=== PATIENT | female | born 1980 | race Caucasian/White ===

== ENCOUNTER 2017-01-12 10:23 | Observation (INO) | payer MEDICAID ==
[2017-01-12 10:31] VITALS: BMI 22.1
--- NOTE | 2017-01-12 10:46 | ED PDOC ---
Arrival/HPI - General Time Seen by Provider: 01/12/17 10:31 Historian: Patient - History of Present Illness Narrative History of Present Illness (Text): 01/12/17 10:32 A 36 year old female, whose past medical history includes diabetes, presents to the emergency department complaining of syncope episode. Patient reports waking up in bed and having no recollection of what may have happened prior to syncope episode. Patient mentions she most likely fell and hit her head due to right-side "sore" pain in the back of her head. Also, she states that recently she has not been able to eat due the recent left-side toothache and she is scheduled to see her dentist tomorrow. Patient denies of any fever, chest pain , shortness of breath, urinary symptoms, or any other complaints. Patient mentions she takes OCP medication. PMD: [facility] Symptom Onset: Sudden Quality: Other (sore head pain) Activities at Onset: Rest, Light Context: Home Past Medical History - Provider Review Nursing Documentation Reviewed: Yes - Travel History Have you recently traveled outside [place] w/in the past 3 mons?: No Family/Social History - Physician Review Nursing Documentation Reviewed: Yes Family/Social History: No Known Family HX Allergies/Home Meds Allergies/Adverse Reactions: Allergies No Known Allergies Allergy (Unverified 01/12/17 10:37) Home Medications: Home Meds Medication Instructions Recorded Confirmed Insulin Aspart, Recombinant 8 unit SC BID 01/12/17 01/12/17 [Novolog] Review of Systems - Physician Review All systems were reviewed & negative as marked: Yes - Review of Systems Constitutional: absent: Fevers Respiratory: absent: SOB Cardiovascular: Syncope. absent: Chest Pain Gastrointestinal: absent: Abdominal Pain, Diarrhea, Nausea, Vomiting Genitourinary Female: absent: Urine Output Changes Musculoskeletal: Other (right-side head pain (back of head)) Physical Exam Vital Signs Reviewed: Yes Vital Signs Temp Pulse Resp BP Pulse Ox 01/12/17 15:34 122 H 18 122/87 100 01/12/17 14:55 98.7 F 124 H 18 123/67 100 01/12/17 12:51 122 H 18 135/95 H 100 01/12/17 10:38 98.3 F 97 H 18 130/87 100 Temperature: Afebrile Blood Pressure: Normal Pulse: Regular Respiratory Rate: Normal Appearance: Positive for: Well-Appearing Pain Distress: None Mental Status: Positive for: Alert and Oriented X 3 - Systems Exam Head: Present: Tenderness (right-side posterior). No: Other (no hematoma) Pupils: Present: PERRL Extroacular Muscles: Present: EOMI Conjunctiva: Present: Normal Mouth: Present: Moist Mucous Membranes Neck: Present: Normal Range of Motion Respiratory/Chest: No: Tender to Palpation Cardiovascular: Present: Regular Rate and Rhythm, Normal S1, S2. No: Murmurs Abdomen: Present: Normal Bowel Sounds. No: Tenderness, Distention, Peritoneal Signs Back: Present: Normal Inspection Upper Extremity: Present: Normal Inspection. No: Cyanosis, Edema Lower Extremity: Present: Normal Inspection. No: Edema Neurological: Present: GCS=15, CN II-XII Intact, Speech Normal Skin: Present: Warm, Dry, Normal Color. No: Rashes Psychiatric: Present: Alert, Oriented x 3, Normal Insight, Normal Concentration Medical Decision Making ED Course and Treatment: 01/12/17 10:56 Impression: 36 year old male with syncope and sore head pain. Physical exam shows right-side posterior tenderness, no hematoma. Differential Diagnosis included but are not limited to: Syncope secondary to Cardiac vs. Dehydration vs PE Plan: -- EKG -- Head CT -- Chest CT -- Chest X-Ray -- Labs -- Urinalysis -- Reassess and disposition Progress Notes: 01/12/2017 10:57 EKG: Ordered, reviewed, and independently interpreted the EKG. Rate : 97 BPM Rhythm : NSR Interpretation : No ST-segment elevations or depressions, no T-wave inversions, normal intervals. Comparison : No previous EKG for comparison. 01/12/2017 12:[address] IMPRESSION: No acute finding Dictator: Yves Conti MD 01/12/17 12:[address] IMPRESSION: Unremarkable CT pulmonary angiogram. No pulmonary embolus. Dictator: Yves Conti MD 01/12/2017 13:35 Chest X-Ray IMPRESSION: Patchy infiltrate at the left lung base Dictator : Yves Conti MD 01/12/17 15:03 EKG: Ordered, reviewed, and independently interpreted the EKG. Rate : 122 BPM Rhythm : Sinus Tachycardic Interpretation : No ST-segment elevations or depressions, no T-wave inversions, normal intervals. Comparison : No previous EKG for comparison. 01/12/17 15:[address] completed and negative. Also CT does not show infiltrate as does CXR. Dr. Goins confirmed no infiltrate on CT Chest. Despite NS 2 liter boluses and Ativan 1mg IV patient's heart rate is at 120's. EKG repeated and it' s Sinus tachycardia. She will be placed on tele observation. I discussed case with Dr. Tate who will agree to place the patient on her service. - Critical Care Critical Care Minutes: 30 minutes - Lab Interpretations Lab Results: 01/12/17 10:55 01/12/17 10:55 Lab Results 01/12/17 12:10: Urine Color Yellow, Urine Appearance Sl cloudy, Urine pH 6.0, Ur Specific [place] >= 1.030, Urine Protein 30 H, Urine Glucose (UA) >=1000, Urine Ketones 15 H, Urine Blood Trace-lysed H, Urine Nitrate Negative, Urine Bilirubin Negative, Urine Urobilinogen 0.2, Ur Leukocyte Esterase Negative, Urine RBC 2 - 5, Urine WBC 0 - 2, Ur Epithelial Cells 3 - 4, Urine Bacteria Mod 01/12/17 10:55: Sodium 138, Potassium 3.7, Chloride 103, Carbon Dioxide 24, Anion Gap 15, BUN 9, Creatinine 0.6, Est GFR ( Amer) > 60, Est GFR (Non- Af Amer) > 60, Random Glucose 149 H, Calcium 9.1, Magnesium 1.7, Total Bilirubin 0.5, AST 13 L, ALT 21, Alkaline Phosphatase 83, Lactate Dehydrogenase 286 L, Total Creatine Kinase 23 L, Troponin I < 0.01, Total Protein 7.6, Albumin 4.2, Globulin 3.4, Albumin/Globulin Ratio 1.2 01/12/17 10:55: PT 10.6, INR 0.98, APTT 24.4, D-Dimer, Quantitative 0.84 H 01/12/17 10:55: WBC 8.1, RBC 5.08, Hgb 13.5, Hct 40.3, MCV 79.3 L, MCH 26.6, MCHC 33.5, RDW 12.3, Plt Count 278, MPV 10.4, Gran % 70.6 H, Lymph % (Auto) 21.0 L, [place] % (Auto) 7.2 H, Eos % (Auto) 1.0 L, Baso % (Auto) 0.2, Gran # 5.74 , Lymph # 1.7, [place] # 0.6, Eos # 0.1, Baso # 0.02 I have reviewed the lab results: Yes Interpretation: Abnormal lab values (dimer elevated) - RAD Interpretation Radiology Orders: 01/12/17 10:38 Brain [HEAD W/O CONTRAST] [CT] Stat CHEST ONE VIEW [RAD] Stat 01/12/17 11:26 ANGIO CHEST PE PROTOCOL [CT] Stat 01/12/17 15:42 CAROTID & VERTEBRAL DUPLEX [US] Routine - Medication Orders Current Medication Orders: Sodium Chloride (Sodium Chloride 0.9%) 1,000 mls @ 100 mls/hr IV .Q10H DAHIANA Insulin Human Regular (Humulin R Low) 0 units SC ACHS DAHIANA PRN Reason: Protocol Discontinued Medications Acetaminophen (Tylenol 325mg Tab) 650 mg PO STAT STA Stop: 01/12/17 10:53 Last Admin: 01/12/17 11:11 Dose: 650 mg Sodium Chloride (Sodium Chloride 0.9%) 1,000 mls @ 100 mls/hr IV .Q10H DAHIANA Last Admin: 01/12/17 11:07 Dose: 100 mls/hr Sodium Chloride (Sodium Chloride 0.9%) 1,000 mls @ 999 mls/hr IV .Q1H1M STA Stop: 01/12/17 14:56 Last Admin: 01/12/17 14:00 Dose: 999 mls/hr Iodixanol (Visipaque 320 Mg/Ml 100 Ml) Confirm Administered Dose 100 ml IV .STK- MED ONE Stop: 01/12/17 11:55 Lorazepam (Ativan) 1 mg IVP ONCE ONE PRN Reason: Protocol Stop: 01/12/17 14:49 Last Admin: 01/12/17 15:04 Dose: 1 mg - Scribe Statement The provider has reviewed the documentation as recorded by the David David Provider Scribe Attestation: All medical record entries made by the Scribtoby were at my direction and personally dictated by me. I have reviewed the chart and agree that the record accurately reflects my personal performance of the history, physical exam, medical decision making, and the department course for this patient. I have also personally directed, reviewed, and agree with the discharge instructions and disposition. Disposition/Present on Arrival - Present on Arrival Any Indicators Present on Arrival: No - Disposition Have Diagnosis and Disposition been Completed?: Yes Diagnosis: Syncope, Tachycardia Disposition Time: 15:50 Patient Plan: Observation Condition: FAIR Discharge Instructions (ExitCare): Syncope (ED)
[2017-01-12] MEDS ORDERED: Sodium Chloride 0.9% 1,000 ML IV SCH ×2 (11:00→15:30)
[2017-01-12 11:04] LABS: BASO # 0.02 K/mm3 (0.0-2.0); BASO % 0.2 % (0.0-3.0); EOS # 0.1 (0.0-0.7); GRAN # 5.74 (1.4-6.5); GRAN % 70.6 % (50.0-68.0); HEMOGLOBIN 13.5 g/dL (12.0-16.0); LYMPH # 1.7 (1.2-3.4); MEAN CELL VOLUME 79.3 fl (80.0-105.0); MEAN CORPUSCULAR HEMOGLOBIN 26.6 pg (25.0-35.0); MEAN CORPUSCULAR HGB CONC 33.5 g/dl (31.0-37.0); MEAN PLATELET VOLUME 10.4 fl (7.0-11.0); MONO # 0.6 (0.1-0.6); MONO % 7.2 % (1.0-6.0); PLATELET COUNT 278 10^3/uL (120.0-450.0); RBC 5.08 10^6/uL (3.5-6.1); RED CELL DISTRIBUTION WIDTH 12.3 % (11.5-14.5); WHITE BLOOD COUNT 8.1 10^3/ul (4.5-11.0)
[2017-01-12 11:12] LABS: ALB/GLOB RATIO 1.2 (1.1-1.8); ALBUMIN 4.2 g/dL (3.0-4.8); ALT/SGPT 21 U/L (7-56); AST/SGOT 13 U/L (15-39); BLOOD UREA NITROGEN 9 mg/dL (7-21); CALCIUM 9.1 mg/dL (8.4-10.5); GFR AFRICAN-AMERICAN > 60; GFR NON-AFRICAN AMERICAN > 60; MAGNESIUM 1.7 mg/dL (1.7-2.2)
[2017-01-12 11:24] LABS: INR 0.98 (0.93-1.08); PARTIAL THROMBOPLASTIN TIME 24.4 Seconds (23.7-30.8); PROTHROMBIN TIME 10.6 Seconds (9.9-11.8)
[2017-01-12 11:25] LABS: D DIMER 0.84 mg/L FEU (0-0.50)
[2017-01-12 11:30] LABS: TROPONIN I < 0.01 ng/mL
[2017-01-12] MEDS ORDERED: Iodixanol 320 MG/ML 100 ML BOTTLE IV ONE (11:54)
[2017-01-12 12:19] LABS: URINE BILIRUBIN NEGATIVE (NEGATIVE); URINE BLOOD TRACE-LYSED (NEGATIVE); URINE COLOR YELLOW (YELLOW); URINE GLUCOSE (UA) >=1000 mg/dL (NEGATIVE); URINE LEUKOCYTE ESTERASE NEGATIVE Leu/uL (NEGATIVE); URINE NITRATE NEGATIVE (NEGATIVE); URINE PROTEIN 30 mg/dL (<30 mg/dL); URINE UROBILINOGEN 0.2 E.U./dL (<1 E.U./dL)
[2017-01-12 12:20] LABS: URINE APPEARANCE SL CLOUDY (CLEAR)
[2017-01-12 12:36] LABS: URINE BACTERIA MOD (NEG); URINE WBC 0 - 2 /hpf (0-6)
--- NOTE | 2017-01-12 12:43 | CT ---
PROCEDURE: CT HEAD WITHOUT CONTRAST. HISTORY: head injury r/o ich COMPARISON: None available. TECHNIQUE: Axial computed tomography images were obtained through the head/brain without intravenous contrast. Radiation dose: Total exam DLP = 689 mGy-cm. This CT exam was performed using one or more of the following dose reduction techniques: Automated exposure control, adjustment of the mA and/or kV according to patient size, and/or use of iterative reconstruction technique. FINDINGS: HEMORRHAGE: No intracranial hemorrhage. BRAIN: No mass effect or edema. No atrophy or chronic microvascular ischemic changes. VENTRICLES: Unremarkable. No hydrocephalus. CALVARIUM: Unremarkable. PARANASAL SINUSES: Unremarkable as visualized. No significant inflammatory changes. MASTOID AIR CELLS: Unremarkable as visualized. No inflammatory changes. OTHER FINDINGS: None. IMPRESSION: No acute finding
--- NOTE | 2017-01-12 12:46 | CT ---
PROCEDURE: CT Chest with contrast (Pulmonary Angiogram) HISTORY: elevated dimer and syncope r/o PE COMPARISON: None available. TECHNIQUE: Axial computed tomography images were obtained of the chest in the pulmonary arterial phase of enhancement. Coronal and sagittal reformatted images were created and reviewed. Intravenous contrast dose: 100 cc of Visipaque Radiation dose: Total exam DLP = 327 mGy-cm. This CT exam was performed using one or more of the following dose reduction techniques: Automated exposure control, adjustment of the mA and/or kV according to patient size, and/or use of iterative reconstruction technique. FINDINGS: PULMONARY ARTERIES: Unremarkable. No pulmonary embolism. AORTA: No acute findings. No thoracic aortic aneurysm. LUNGS: Unremarkable. No nodule, mass or pulmonary consolidation. PLEURAL SPACES: Unremarkable. No effusion or pneuomothorax. HEART: Unremarkable. No cardiomegaly. No significant pericardial effusion. LYMPH NODES: No lymphadenopathy. BONES, CHEST WALL: Unremarkable. No fracture or destructive lesion OTHER FINDINGS: Unremarkable. IMPRESSION: Unremarkable CT pulmonary angiogram. No pulmonary embolus.
--- NOTE | 2017-01-12 13:37 | RAD ---
PROCEDURE: CHEST RADIOGRAPH, 1 VIEW HISTORY: syncope COMPARISON: None available. FINDINGS: LUNGS: Patchy infiltrate at the left lung base PLEURA: No pneumothorax or pleural fluid seen. CARDIOVASCULAR: Normal. OSSEOUS STRUCTURES: No significant abnormalities. VISUALIZED UPPER ABDOMEN: Normal. OTHER FINDINGS: None. IMPRESSION: Patchy infiltrate at the left lung base
[2017-01-12] MEDS ORDERED: Sodium Chloride 0.9% 1,000 ML IV STA (13:56)
[2017-01-12 16:19] LABS: MAGNESIUM 1.7 mg/dL (1.7-2.2)
[2017-01-12] MEDS ORDERED: Insulin Regular 1 UNITS/0.01 ML ML ONE (16:32)
[2017-01-12] MEDS: Insulin Reg-LOW-Coverage SC SCH ×2 (16:38→23:40)
--- NOTE | 2017-01-12 16:39 | CP.PCM.HP ---
<GILMER HARRIS - Last Filed: 01/12/17 16:30> History of Present Illness - History of Present Illness History of Present Illness: CC: Syncopal episode Pt is a 36 yo F with PMHx of IDDM presents with syncopal episode this morning. Pt denies any prior history of syncope. Pt states that this morning she began to fell dizzy and naseous around 10 am. At which point she check her blood glucose, which was 102. She states that she normal runs in the high 100s to low 200s. Shortly after, her mother reports that she had a syncopal episode, fell back, and hit her head on hardwood floor. Her mother denied any seizure activity. Her mother stated that she was out for about 5 minutes and awoke after she was given sugar PO. Pt states that her last dose of insulin was last night with dinner. However, she has been eating less lately due to dental cavities and gum disease, in which she was supposed to have a dental appointment today. Pt is currently complaining of chills, orthopnea and fast heart beat. Pt denied CP, SOB, vomiting, diarrhea/constipation, abdominal pain, and vertigo. PMHx: IDDM Surg: x2, oral surgery FHx: DM, HTN, lupus, breast CA, HLD, CAD SH: denied tobacco or illicit drugs, admitted to social EtOH use All: NKDA Meds: Humalog ISS Present on Admission - Present on Admission Any Indicators Present on Admission: No Review of Systems - Review of Systems All systems: reviewed and no additional remarkable complaints except (12 point ROS negative other than what is stated in HPI) Past Patient History - Infectious Disease Hx of Infectious Diseases: None - Past Social History Smoking Status: Unknown If Ever Smoked - ENDOCRINE/METABOLIC Hx Diabetes Mellitus Type 1: Yes - PSYCHIATRIC Hx Substance Use: No - SURGICAL HISTORY Hx Section: Yes - ANESTHESIA Hx Anesthesia: Yes Hx Anesthesia Reactions: No Meds Home Medications: Home Medication List Medication Instructions Recorded Confirmed Type Atenolol [Tenormin] 25 mg PO DAILY #30 tablet 01/13/17 Rx Clindamycin [Cleocin] 300 mg PO Q6H 3 Days 01/13/17 Rx Allergies/Adverse Reactions: Allergies Allergy/AdvReac Type Severity Reaction Status Date / Time No Known Allergies Allergy Verified 01/12/17 20:18 Physical Exam - Constitutional Appears: No Acute Distress - Head Exam Head Exam: NORMOCEPHALIC Additional comments: TTP occipital region, no lesions, cuts, blood. - Eye Exam Eye Exam: EOMI, PERRL - ENT Exam ENT Exam: Mucous Membranes Moist - Neck Exam Neck exam: Positive for: Full Rom. Negative for: Lymphadenopathy, Tenderness, Thyromegaly Additional comments: No carotid bruits b/l - Respiratory Exam Respiratory Exam: Clear to Auscultation Bilateral. absent: Rales, Rhonchi, Wheezes - Cardiovascular Exam Cardiovascular Exam: Tachycardia, REGULAR RHYTHM. absent: Gallop, Rubs, Systolic Murmur - GI/Abdominal Exam GI & Abdominal Exam: Soft. absent: Distended, Firm, Guarding, Rebound, Tenderness - Extremities Exam Extremities exam: Positive for: normal inspection - Back Exam Back exam: NORMAL INSPECTION - Neurological Exam Neurological exam: Alert, CN II-XII Intact, Oriented x3 - Psychiatric Exam Psychiatric exam: Normal Affect, Normal Mood - Skin Skin Exam: Dry, Intact, Normal Color, Warm Results - Vital Signs Recent Vital Signs: Last Vital Signs Temp 98.7 F 01/12/17 14:55 Pulse 122 H 01/12/17 15:34 Resp 18 01/12/17 15:34 BP 122/87 01/12/17 15:34 Pulse Ox 100 01/12/17 15:34 - Labs Result Diagrams: 01/12/17 10:55 01/12/17 10:55 Assessment & Plan - Assessment and Plan (Free Text) Assessment: 36 yo F with PMHx of IDDM will be admitted for evaluation and treatment for syncopal episode likely due to relative hypoglycemia. Plan: 1. Relative Hypoglycemia - Given pt h/o glucose in low 200's and glucose this AM of 102 and decreased PO intake, relative hypoglycemia is likely - Current glucose 149, continue to monitor - EKG shows tachycardia otherwise NSR - Negative troponin - CXR, head CT, chest CT negative - F/u orthostatics, TSH, A1C, drug screen - F/u echo, carotid US 2. IDDM - Hold insulin for now - Carb consistent diet 3. Dehydration - Decreased PO intake due to dental caries - NS 2L bolus, then 100 ml/hr 4. GI/DVT PPx - Protonix - SCDs Pt seen and discussed in detail with Dr. Tate. <Sherry Tate - Last Filed: 01/13/17 17:09> Results - Vital Signs Recent Vital Signs: Last Vital Signs Temp 98.4 F 01/13/17 05:52 Pulse 87 01/13/17 14:00 Resp 18 01/13/17 05:52 BP 124/71 01/13/17 09:28 Pulse Ox 99 01/13/17 05:52 - Labs Result Diagrams: 01/13/17 08:45 01/13/17 08:45 Labs: Laboratory Results - last 24 hr 01/12/17 01/12/17 01/12/17 17:18 21:08 21:50 WBC RBC Hgb Hct MCV MCH MCHC RDW Plt Count MPV Gran % Lymph % (Auto) [place] % (Auto) Eos % (Auto) Baso % (Auto) Gran # Lymph # Smith # Eos # Baso # Sodium Potassium Chloride Carbon Dioxide Anion Gap BUN Creatinine Est GFR ( Amer) Est GFR (Non-Af Amer) POC Glucose (mg/dL) 304 H 302 H Random Glucose Calcium Total Bilirubin AST ALT Alkaline Phosphatase Total Protein Albumin Globulin Albumin/Globulin Ratio Urine Opiates Screen Negative Urine Methadone Screen Negative Ur Barbiturates Screen Negative Ur Phencyclidine Scrn Negative Ur Amphetamines Screen Negative U Benzodiazepines Scrn Negative U Oth Cocaine Metabols Negative U Cannabinoids Screen Negative 01/13/17 01/13/17 01/13/17 02:08 07:46 08:45 WBC 9.2 RBC 4.36 Hgb 11.6 L Hct 35.2 L MCV 80.7 MCH 26.6 MCHC 33.0 RDW 12.5 Plt Count 288 MPV 11.0 Gran % 76.8 H Lymph % (Auto) 16.4 L Smith % (Auto) 6.4 H Eos % (Auto) 0.2 L Baso % (Auto) 0.2 Gran # 7.04 H Lymph # 1.5 Smith # 0.6 Eos # 0.0 Baso # 0.02 Sodium Potassium Chloride Carbon Dioxide Anion Gap BUN Creatinine Est GFR ( Amer) Est GFR (Non-Af Amer) POC Glucose (mg/dL) 288 H 296 H Random Glucose Calcium Total Bilirubin AST ALT Alkaline Phosphatase Total Protein Albumin Globulin Albumin/Globulin Ratio Urine Opiates Screen Urine Methadone Screen Ur Barbiturates Screen Ur Phencyclidine Scrn Ur Amphetamines Screen U Benzodiazepines Scrn U Oth Cocaine Metabols U Cannabinoids Screen 01/13/17 01/13/17 01/13/17 08:45 12:54 16:09 WBC RBC Hgb Hct MCV MCH MCHC RDW Plt Count MPV Gran % Lymph % (Auto) [place] % (Auto) Eos % (Auto) Baso % (Auto) Gran # Lymph # Smith # Eos # Baso # Sodium 135 Potassium 4.3 Chloride 105 Carbon Dioxide 15 L Anion Gap 19 BUN 11 Creatinine 0.6 Est GFR ( Amer) > 60 Est GFR (Non-Af Amer) > 60 POC Glucose (mg/dL) 276 H 298 H Random Glucose 299 H Calcium 8.5 Total Bilirubin 0.6 AST 15 ALT 20 Alkaline Phosphatase 73 Total Protein 6.5 Albumin 3.5 Globulin 3.0 Albumin/Globulin Ratio 1.2 Urine Opiates Screen Urine Methadone Screen Ur Barbiturates Screen Ur Phencyclidine Scrn Ur Amphetamines Screen U Benzodiazepines Scrn U Oth Cocaine Metabols U Cannabinoids Screen Attending/Attestation - Attestation I have personally seen and examined this patient.: Yes I have fully participated in the care of the patient.: Yes I have reviewed all pertinent clinical information: Yes Notes (Text): 01/13/17 17:05 Attending note; patient seen and examined with resident in the ER. Pt is a 36 year old Female with PMHx of IDDM presents with syncopal episode this morning. Pt denies any prior history of syncope. Pt states that this morning she began to fell dizzy and nauseous around 10 am. the patient had relative hypoglycemia and passed out. patient has poor po intake for the past week secondary to gingivitis and toothache. Currently fingerstick is normal. Symptomatic tachycardia; Continue IV hydration. Monitor closely. Now history of cardiac problems in the past. Echocardiogram requested. Cardiology evaluation requested. gingivitis/toothache; started on clindamycin. Possible discharge home tomorrow if clinically stable.
[2017-01-12] MEDS ORDERED: Sodium Chloride 0.9% 2,000 ML IV SCH (16:43)
[2017-01-12] MEDS: Sodium Chloride 0.9% 1,000 ML IV SCH (17:32)
--- NOTE | 2017-01-12 21:34 | CARD ---
APPROVED REPORT EKG Measurement Heart [id number] [place] [id number] <Conclusion> Sinus tachycardia Otherwise normal ECG
--- NOTE | 2017-01-12 21:42 | CARD ---
APPROVED REPORT EKG Measurement Heart [id number] [place] [id number] <Conclusion> Normal sinus rhythm Normal ECG
[2017-01-12 22:15] LABS: BARBITURATES, UR NEGATIVE (NEGATIVE); BENZODIAZEPINES, UR NEGATIVE (NEGATIVE); OPIATES, UR NEGATIVE (NEGATIVE); PHENCYCLIDINE, UR NEGATIVE (NEGATIVE)
[2017-01-12] MEDS ORDERED: Pneumococcal 23-Valent Vaccine IM ONE (22:31)
[2017-01-13 02:31] VITALS: RESP 18
[2017-01-13] MEDS: Sodium Chloride 0.9% 1,000 ML IV SCH ×2 (03:00→13:47)
--- NOTE | 2017-01-13 04:21 | CON ---
DATE OF CONSULTATION: 01/12/2017 LOCATION: The patient in room 260, bed 1. REASON FOR CONSULTATION: Syncope, and sinus tachycardia. HISTORY OF PRESENT ILLNESS: The patient is a 36-year-old female who has known diabetes since of age 4. States that she was feeling nausea this morning and she went to bathroom and while coming out of bathroom, she had syncopal episode. She does not remember going down the floor. She woke up and then she found that she had passed out. The patient states that sometimes when she walks she gets shortness of breath and sometime she gets chest discomfort. The patient's mother states that when she was young around age of 14, she had a similar episode. Denies any history of seizure disorder in the past. PAST MEDICAL HISTORY: Positive for diabetes since age of 4. PERSONAL HISTORY: Denies smoking. Denies drinking. ALLERGIES: THE PATIENT DENIES ANY ALLERGIES. MEDICATION AT HOME: She is on insulin pump and also taking control pills. FAMILY HISTORY: Markedly positive for diabetes and coronary artery disease. PHYSICAL EXAMINATION: VITAL SIGNS: Blood pressure is 149/82, respiration 20, pulse 150, and temperature 98.9. While I was examining the patient, her heart rate was 122. HEENT: Head is normocephalic. Eyes, pupils normal. Conjunctivae normal. Nose and throat normal. NECK: JVP low. Carotids equal. Thorax: AP diameter normal. LUNGS: Clear. CARDIOVASCULAR: S1 and S2. ABDOMEN: Soft and nontender. No organomegaly. EXTREMITIES: No clubbing. No cyanosis. LABORATORY DATA: Shows WBC 8.1, hemoglobin 13.5, hematocrit 40.3 and platelet 278. Sodium 138, potassium 3.7, BUN 9, creatinine 0.6, random glucose 149 on admission to the emergency room and later on it was 304. Phosphorous magnesium is normal. AST 13, and ALT 21. The patient's TSH is 3.93, cholesterol 152, LDL 92, HCL 46, and triglycerides 110. Total protein and albumin normal. EKG shows sinus tachycardia. Chest x-ray patchy infiltrate in the left lung base. CAT scan of the chest unremarkable. Pulmonary angiogram, no pulmonary embolus. Lungs do not show any infiltrate. CAT scan of the head normal. DIAGNOSIS: Syncope most likely vasovagal. The patient was nauseous and he was coming out of bathroom and sinus tachycardia and diabetes mellitus since age 4. PLAN: We will start the patient on atenolol 12.5 mg stat dose and from tomorrow I will give her 25 mg daily, which was started in the morning tomorrow. The patient's echo has been already requested. We will add atorvastatin 10 mg daily for the patient's diabetic and we will also put Ecotrin 81 mg daily and follow echocardiogram and monitor the heart rate and we will follow with you. Hailey Diaz MD
[2017-01-13 05:52] VITALS: TEMP 98.4; O2SAT 99
[2017-01-13] MEDS: Insulin Reg-MEDIUM-Coverage SC SCH ×4 (08:07→16:39)
[2017-01-13 09:25] LABS: BASO # 0.02 K/mm3 (0.0-2.0); BASO % 0.2 % (0.0-3.0); EOS % 0.2 % (1.5-5.0); GRAN # 7.04 (1.4-6.5); GRAN % 76.8 % (50.0-68.0); HEMOGLOBIN 11.6 g/dL (12.0-16.0); LYMPH # 1.5 (1.2-3.4); LYMPH % 16.4 % (22.0-35.0); MEAN CELL VOLUME 80.7 fl (80.0-105.0); MEAN CORPUSCULAR HEMOGLOBIN 26.6 pg (25.0-35.0); MONO # 0.6 (0.1-0.6); MONO % 6.4 % (1.0-6.0); PLATELET COUNT 288 10^3/uL (120.0-450.0); RBC 4.36 10^6/uL (3.5-6.1); RED CELL DISTRIBUTION WIDTH 12.5 % (11.5-14.5); WHITE BLOOD COUNT 9.2 10^3/ul (4.5-11.0)
[2017-01-13 09:30] VITALS: BP 124/71
[2017-01-13 09:38] LABS: ALB/GLOB RATIO 1.2 (1.1-1.8); ALBUMIN 3.5 g/dL (3.0-4.8); ALT/SGPT 20 U/L (7-56); AST/SGOT 15 U/L (15-39); BLOOD UREA NITROGEN 11 mg/dL (7-21); CALCIUM 8.5 mg/dL (8.4-10.5); GFR AFRICAN-AMERICAN > 60; GFR NON-AFRICAN AMERICAN > 60
[2017-01-13] MEDS ORDERED: Sodium Chloride 0.9% 1,000 ML IV SCH (13:31)
--- NOTE | 2017-01-13 14:51 | PN ---
DATE: 01/13/2017 REASON FOR CONSULTATION: Followup syncope and sinus tachycardia. SUBJECTIVE: The patient denies any chest pain, denies any shortness of breath, denies any palpitation. OBJECTIVE: GENERAL: The patient is having the breakfast. Sister is at the bedside. Not in apparent distress. Examination as follows: VITAL SIGNS: Temperature afebrile, heart rate 96, blood pressure 114/62. HEENT: PERRLA. Extraocular muscles intact. NECK: Supple. No carotid bruit. No thyromegaly. CHEST: Clear to auscultation. HEART: S1 and S2, regular. ABDOMEN: Soft. EXTREMITIES: Clubbing and cyanosis negative. LABORATORY DATA: Blood workup as follows: WBC 8.1, hemoglobin 13.5, hematocrit 40.3, platelet count 278. Chemistry shows sodium 138, potassium 3.7, chloride 103, carbon dioxide 24, anion gap of 15, BUN of 9, creatinine 0.6, random sugar 149. Triglyceride 110, cholesterol 152, LDL 52, HDL 49. TSH is 3.93. IMPRESSION: A 36-year-old female with past medical history of juvenile diabetes started at age 4, who was not eating, drinking for more than 24 hours because of the left side patient has toothache and dental caries. While coming to the bathroom, she had a syncopal episode, most likely secondary to vasovagal orthostatic hypotension. She had a prior episode at the age of 14. The patient also has tachycardia. Therefore, Cardiology consult was called for. Dr. Diaz, last night started beta-ally, check for orthostasis. Continue IV fluid. We will get echo to assess left ventricular function. Since the patient is diabetic from the age of 4, consider stress test as outpatient for risk stratification. will follow you and we will get orthostatic hypotension. Currently, the patient is getting IV fluids. We will follow with you. Thank you Dr. Tate for providing me the opportunity in taking care of the patient Maricruz Hillman. Hailey José MD
[2017-01-13 15:29] VITALS: PULSE 87
--- NOTE | 2017-01-13 17:32 | CARD ---
APPROVED REPORT EXAM: Two-dimensional and M-mode echocardiogram with Doppler and color Doppler. INDICATION Syncope 2D DIMENSIONS Left Atrium (2D)2.5 (1.6-4.0cm)IVSd0.9 (0.7-1.1cm) LVDd4.3 (3.9-5.9cm)PWd0.9 (0.7-1.1cm) LVDs2.7 (2.5-4.0cm)FS (%) 35.8 % LVEF (%)65.7 (>50%) M-Mode DIMENSIONS Aortic Root2.30 (2.2-3.7cm)Aortic Cusp Exc.1.40 (1.5-2.0cm) Aortic Valve AoV Peak Jrrrmqpk088.0cm/Carla Peak GR.13mmHg Mitral Valve MV E Evzakvsz747.0cm/sMV A Tpkmhdwj90.0cm/sE/A ratio1.3 TDI E/Lateral E'0.0E/Medial E'0.0 Tricuspid Valve TR Peak [id number]/sRAP [id number] Peak Gr.32mmHg [id number] LEFT VENTRICLE The left ventricle is normal size. There is normal left ventricular wall thickness. The left ventricular function is normal. The left ventricular ejection fraction is within the normal range. There is normal LV segmental wall motion. The left ventricular diastolic function is normal. No left ventricle thrombus noted on this study. There is no ventricular septal defect visualized. There is no left ventricular aneurysm. There is no mass noted in the left ventricle. RIGHT VENTRICLE The right ventricle is normal size. There is normal right ventricular wall thickness. The right ventricular systolic function is normal. ATRIA The left atrium size is normal. The right atrium size is normal. The interatrial septum is intact with no evidence for an atrial septal defect. AORTIC VALVE The aortic valve is thickened but opens well. The aortic valve is mildly sclerotic. There is trace aortic regurgitation. There is no aortic valvular stenosis. There is no aortic valvular vegetation. MITRAL VALVE The mitral valve is thickened but opens well. Mitral regurgitation is trace to mild. There is no mitral valve stenosis. There is no evidence of mitral valve prolapse. TRICUSPID VALVE The tricuspid valve leaflets are thickened , but open well. There is mild to moderate tricuspid regurgitation.RVSP-42 mmof hg. There is no tricuspid valve stenosis. There is no tricuspid valve prolapse or vegetation. PULMONIC VALVE The pulmonary valve is normal in structure. There is no pulmonic valvular regurgitation. There is no pulmonic valvular stenosis. GREAT VESSELS The aortic root is normal in size. The ascending aorta is normal in size. The pulmonary artery is normal. The IVC is normal in size and collapses >50% with inspiration. PERICARDIAL EFFUSION There is no pleural effusion. There is no pericardial effusion. <Conclusion> Normal chamber Size. EF-60-65% There is trace aortic regurgitation. Mitral regurgitation is trace to mild. There is mild to moderate tricuspid regurgitation.RVSP-42 mmof hg. The IVC is normal in size and collapses >50% with inspiration. There is no pericardial effusion. No Vegetation or thrombus noted.
--- NOTE | 2017-01-13 18:54 | US ---
PROCEDURE: Bilateral carotid artery duplex ultrasound HISTORY: Syncope. PHYSICIAN(S): Cas Rivas MD. TECHNIQUE: Duplex sonography and color-flow Doppler were used to evaluate the carotid bifurcations and limited segments of the vertebral arteries bilaterally. FINDINGS: There is minimal intimal- medial thickening noted at the carotid bifurcations bilaterally. The peak systolic velocity in the proximal right internal carotid artery is 74 cm/sec. This corresponds to a 0-19 percent proximal right ICA stenosis. Normal systolic velocities are noted in the proximal right external carotid artery. There is antegrade flow in the right vertebral artery. The peak systolic velocity in the proximal left internal carotid artery is 77 cm/sec. This corresponds to a 0-19 percent proximal left ICA stenosis. Normal systolic velocities are noted in the proximal left external carotid artery. There is antegrade flow in the dominant left vertebral artery. IMPRESSION: 1. Bilateral 0-19 percent proximal ICA stenoses. 2. Antegrade flow in both vertebral arteries.
--- NOTE | 2017-01-13 19:13 | CP.PCM.DIS ---
<GILMER HARRIS - Last Filed: 01/13/17 18:53> Provider - Provider Date of Admission: 01/12/17 15:21 Attending physician: Sherry Tate MD Consults: Cardio: Emily/Arnav Time Spent in preparation of Discharge (in minutes): 45 Hospital Course - Lab Results Lab Results: Most Recent Lab Values WBC 9.2 10^3/ul (4.5-11.0) 01/13/17 08:45 RBC 4.36 10^6/uL (3.5-6.1) 01/13/17 08:45 Hgb 11.6 g/dL (12.0-16.0) L 01/13/17 08:45 Hct 35.2 % (36.0-48.0) L 01/13/17 08:45 MCV 80.7 fl (80.0-105.0) 01/13/17 08:45 MCH 26.6 pg (25.0-35.0) 01/13/17 08:45 MCHC 33.0 g/dl (31.0-37.0) 01/13/17 08:45 RDW 12.5 % (11.5-14.5) 01/13/17 08:45 Plt Count 288 10^3/uL (120.0-450.0) 01/13/17 08:45 MPV 11.0 fl (7.0-11.0) 01/13/17 08:45 Gran % 76.8 % (50.0-68.0) H 01/13/17 08:45 Lymph % (Auto) 16.4 % (22.0-35.0) L 01/13/17 08:45 [place] % (Auto) 6.4 % (1.0-6.0) H 01/13/17 08:45 Eos % (Auto) 0.2 % (1.5-5.0) L 01/13/17 08:45 Baso % (Auto) 0.2 % (0.0-3.0) 01/13/17 08:45 Gran # 7.04 (1.4-6.5) H 01/13/17 08:45 Lymph # 1.5 (1.2-3.4) 01/13/17 08:45 Gaston # 0.6 (0.1-0.6) 01/13/17 08:45 Eos # 0.0 (0.0-0.7) 01/13/17 08:45 Baso # 0.02 K/mm3 (0.0-2.0) 01/13/17 08:45 PT 10.6 Seconds (9.9-11.8) 01/12/17 10:55 INR 0.98 (0.93-1.08) 01/12/17 10:55 APTT 24.4 Seconds (23.7-30.8) 01/12/17 10:55 D-Dimer, Quantitative 0.84 mg/L FEU (0-0.50) H 01/12/17 10:55 Sodium 135 mmol/L (132-148) 01/13/17 08:45 Potassium 4.3 mmol/L (3.6-5.0) 01/13/17 08:45 Chloride 105 mmol/L (98-107) 01/13/17 08:45 Carbon Dioxide 15 mmol/L (21-33) L 01/13/17 08:45 Anion Gap 19 (10-20) 01/13/17 08:45 BUN 11 mg/dL (7-21) 01/13/17 08:45 Creatinine 0.6 mg/dL (0.5-1.4) 01/13/17 08:45 Est GFR ( Amer) > 60 01/13/17 08:45 Est GFR (Non-Af Amer) > 60 01/13/17 08:45 POC Glucose (mg/dL) 298 mg/dL (65-110) H 01/13/17 16:09 Random Glucose 299 mg/dL (70-110) H 01/13/17 08:45 Hemoglobin A1c 11.6 % (4.2-6.5) H 01/12/17 10:55 Calcium 8.5 mg/dL (8.4-10.5) 01/13/17 08:45 Phosphorus 2.6 mg/dL (2.5-4.5) 01/12/17 10:55 Magnesium 1.7 mg/dL (1.7-2.2) 01/12/17 10:55 Total Bilirubin 0.6 mg/dL (0.2-1.3) 01/13/17 08:45 AST 15 U/L (15-39) 01/13/17 08:45 ALT 20 U/L (7-56) 01/13/17 08:45 Alkaline Phosphatase 73 U/L (38-133) 01/13/17 08:45 Lactate Dehydrogenase 286 U/L (333-699) L 01/12/17 10:55 Total Creatine Kinase 23 U/L (35-230) L 01/12/17 10:55 Troponin I < 0.01 ng/mL 01/12/17 10:55 Total Protein 6.5 g/dL (5.8-8.3) 01/13/17 08:45 Albumin 3.5 g/dL (3.0-4.8) 01/13/17 08:45 Globulin 3.0 gm/dL 01/13/17 08:45 Albumin/Globulin Ratio 1.2 (1.1-1.8) 01/13/17 08:45 Triglycerides 110 mg/dL (35-160) 01/12/17 10:55 Cholesterol 152 mg/dL (130-200) 01/12/17 10:55 LDL Cholesterol Direct 92 mg/dL (0-129) 01/12/17 10:55 HDL Cholesterol 46 mg/dL (29-60) 01/12/17 10:55 TSH 3rd Generation 3.93 mIU/mL (0.46-4.68) 01/12/17 10:55 Urine Color Yellow (YELLOW) 01/12/17 12:10 Urine Appearance Sl cloudy (CLEAR) 01/12/17 12:10 Urine pH 6.0 (4.7-8.0) 01/12/17 12:10 Ur Specific [place] >= 1.030 (1.005-1.035) 01/12/17 12:10 Urine Protein 30 mg/dL (<30 mg/dL) H 01/12/17 12:10 Urine Glucose (UA) >=1000 mg/dL (NEGATIVE) 01/12/17 12:10 Urine Ketones 15 mg/dL (NEGATIVE) H 01/12/17 12:10 Urine Blood Trace-lysed (NEGATIVE) H 01/12/17 12:10 Urine Nitrate Negative (NEGATIVE) 01/12/17 12:10 Urine Bilirubin Negative (NEGATIVE) 01/12/17 12:10 Urine Urobilinogen 0.2 E.U./dL (<1 E.U./dL) 01/12/17 12:10 Ur Leukocyte Esterase Negative Wil/uL (NEGATIVE) 01/12/17 12:10 Urine RBC 2 - 5 /hpf (0-2) 01/12/17 12:10 Urine WBC 0 - 2 /hpf (0-6) 01/12/17 12:10 Ur Epithelial Cells 3 - 4 /hpf (0-5) 01/12/17 12:10 Urine Bacteria Mod (NEG) 01/12/17 12:10 Urine Opiates Screen Negative (NEGATIVE) 01/12/17 21:50 Urine Methadone Screen Negative (NEGATIVE) 01/12/17 21:50 Ur Barbiturates Screen Negative (NEGATIVE) 01/12/17 21:50 Ur Phencyclidine Scrn Negative (NEGATIVE) 01/12/17 21:50 Ur Amphetamines Screen Negative (NEGATIVE) 01/12/17 21:50 U Benzodiazepines Scrn Negative (NEGATIVE) 01/12/17 21:50 U Oth Cocaine Metabols Negative (NEGATIVE) 01/12/17 21:50 U Cannabinoids Screen Negative (NEGATIVE) 01/12/17 21:50 - Hospital Course Hospital Course: Pt is a 36 yo F with PMHx of IDDM presents with syncopal episode this morning. Pt denies any prior history of syncope. Pt states that this morning she began to fell dizzy and naseous around 10 am. At which point she check her blood glucose, which was 102. She states that she normal runs in the high 100s to low 200s. Shortly after, her mother reports that she had a syncopal episode, fell back, and hit her head on hardwood floor. Her mother denied any seizure activity. Her mother stated that she was out for about 5 minutes and awoke after she was given sugar PO. Pt states that her last dose of insulin was last night with dinner. However, she has been eating less lately due to dental cavities and gum disease, in which she was supposed to have a dental appointment today. Pt is currently complaining of chills, orthopnea and fast heart beat. In the ED, labs and imaging were obtained. EKG showed tachycardia. CXR, head CT, and chest CT were negative. Glucose was 149. Pt was admitted for evaluation and treatment for syncopal episode. Pt was aggressively hydrated due to decreased PO intake from dental caries. Cardiology was consulted. Recommended starting atenolol for tachycardia and out patient stress test. Carotid US was showed 0-19% stenoses b/l. Echocardiogram showed 60-65% EF. Today , pt was seen and examined at bedside. Pt denied any acute overnight events. Pt states that her left jaw felt better after recieving IV abx. Patient denied any further syncopal events. Pt denied CP, SOB, n/v/d, chills, fever, abdominal pain , or vertigo. After reviewing the results of her tests, syncopal episode is likely due to either relative hypoglycemia or vasovagal orthostatic hypotension. Pt was was advised to follow up with her dentist and the importance in maintaining balance between her diet and insulin use. Pt was also sent home with rx for atenolol and clindamycin. Discharge Exam - Head Exam Head Exam: ATRAUMATIC, NORMOCEPHALIC - Eye Exam Eye Exam: EOMI, PERRL - ENT Exam ENT Exam: Mucous Membranes Moist Additional comments: dental caries present on upper and lower left side - Neck Exam Neck exam: Full Rom - Respiratory Exam Respiratory Exam: Clear to PA & Lateral. absent: Rales, Rhonchi, Wheezes - Cardiovascular Exam Cardiovascular Exam: RRR. absent: Diastolic murmur, Gallop, Rubs, Systolic Murmur - GI/Abdominal Exam GI & Abdominal Exam: Soft. absent: Distended, Guarding, Rebound, Tenderness - Extremities Exam Extremities exam: normal inspection - Back Exam Back exam: NORMAL INSPECTION - Neurological Exam Neurological exam: Alert, CN II-XII Intact, Oriented x3 - Psychiatric Exam Psychiatric exam: Normal Affect, Normal Mood - Skin Skin Exam: Dry, Intact, Normal Color, Warm Discharge Plan - Discharge Medications Prescriptions: Atenolol [Tenormin] 25 mg PO DAILY #30 tablet Clindamycin [Cleocin] 300 mg PO Q6H 3 Days - Follow Up Plan Condition: FAIR Disposition: HOME/ ROUTINE Instructions: Supraventricular Tachycardia (DC), Syncope (DC), Diabetes Mellitus Type 1 in Adults (DC) Additional Instructions: - Take medications as prescribed - Follow up with dentist as scheduled - Follow up with PMD within 2-3 days - Return to ED if condition worsens Referrals: Hailey José MD [Staff Provider] - <Sherry Tate - Last Filed: 01/14/17 07:57> Provider - Provider Date of Admission: 01/12/17 15:21 Attending physician: Sherry Tate MD Hospital Course - Lab Results Lab Results: Most Recent Lab Values WBC 9.2 10^3/ul (4.5-11.0) 01/13/17 08:45 RBC 4.36 10^6/uL (3.5-6.1) 01/13/17 08:45 Hgb 11.6 g/dL (12.0-16.0) L 01/13/17 08:45 Hct 35.2 % (36.0-48.0) L 01/13/17 08:45 MCV 80.7 fl (80.0-105.0) 01/13/17 08:45 MCH 26.6 pg (25.0-35.0) 01/13/17 08:45 MCHC 33.0 g/dl (31.0-37.0) 01/13/17 08:45 RDW 12.5 % (11.5-14.5) 01/13/17 08:45 Plt Count 288 10^3/uL (120.0-450.0) 01/13/17 08:45 MPV 11.0 fl (7.0-11.0) 01/13/17 08:45 Gran % 76.8 % (50.0-68.0) H 01/13/17 08:45 Lymph % (Auto) 16.4 % (22.0-35.0) L 01/13/17 08:45 Gaston % (Auto) 6.4 % (1.0-6.0) H 01/13/17 08:45 Eos % (Auto) 0.2 % (1.5-5.0) L 01/13/17 08:45 Baso % (Auto) 0.2 % (0.0-3.0) 01/13/17 08:45 Gran # 7.04 (1.4-6.5) H 01/13/17 08:45 Lymph # 1.5 (1.2-3.4) 01/13/17 08:45 Gaston # 0.6 (0.1-0.6) 01/13/17 08:45 Eos # 0.0 (0.0-0.7) 01/13/17 08:45 Baso # 0.02 K/mm3 (0.0-2.0) 01/13/17 08:45 PT 10.6 Seconds (9.9-11.8) 01/12/17 10:55 INR 0.98 (0.93-1.08) 01/12/17 10:55 APTT 24.4 Seconds (23.7-30.8) 01/12/17 10:55 D-Dimer, Quantitative 0.84 mg/L FEU (0-0.50) H 01/12/17 10:55 Sodium 135 mmol/L (132-148) 01/13/17 08:45 Potassium 4.3 mmol/L (3.6-5.0) 01/13/17 08:45 Chloride 105 mmol/L (98-107) 01/13/17 08:45 Carbon Dioxide 15 mmol/L (21-33) L 01/13/17 08:45 Anion Gap 19 (10-20) 01/13/17 08:45 BUN 11 mg/dL (7-21) 01/13/17 08:45 Creatinine 0.6 mg/dL (0.5-1.4) 01/13/17 08:45 Est GFR ( Amer) > 60 01/13/17 08:45 Est GFR (Non-Af Amer) > 60 01/13/17 08:45 POC Glucose (mg/dL) 298 mg/dL (65-110) H 01/13/17 16:09 Random Glucose 299 mg/dL (70-110) H 01/13/17 08:45 Hemoglobin A1c 11.6 % (4.2-6.5) H 01/12/17 10:55 Calcium 8.5 mg/dL (8.4-10.5) 01/13/17 08:45 Phosphorus 2.6 mg/dL (2.5-4.5) 01/12/17 10:55 Magnesium 1.7 mg/dL (1.7-2.2) 01/12/17 10:55 Total Bilirubin 0.6 mg/dL (0.2-1.3) 01/13/17 08:45 AST 15 U/L (15-39) 01/13/17 08:45 ALT 20 U/L (7-56) 01/13/17 08:45 Alkaline Phosphatase 73 U/L (38-133) 01/13/17 08:45 Lactate Dehydrogenase 286 U/L (333-699) L 01/12/17 10:55 Total Creatine Kinase 23 U/L (35-230) L 01/12/17 10:55 Troponin I < 0.01 ng/mL 01/12/17 10:55 Total Protein 6.5 g/dL (5.8-8.3) 01/13/17 08:45 Albumin 3.5 g/dL (3.0-4.8) 01/13/17 08:45 Globulin 3.0 gm/dL 01/13/17 08:45 Albumin/Globulin Ratio 1.2 (1.1-1.8) 01/13/17 08:45 Triglycerides 110 mg/dL (35-160) 01/12/17 10:55 Cholesterol 152 mg/dL (130-200) 01/12/17 10:55 LDL Cholesterol Direct 92 mg/dL (0-129) 01/12/17 10:55 HDL Cholesterol 46 mg/dL (29-60) 01/12/17 10:55 TSH 3rd Generation 3.93 mIU/mL (0.46-4.68) 01/12/17 10:55 Urine Color Yellow (YELLOW) 01/12/17 12:10 Urine Appearance Sl cloudy (CLEAR) 01/12/17 12:10 Urine pH 6.0 (4.7-8.0) 01/12/17 12:10 Ur Specific [place] >= 1.030 (1.005-1.035) 01/12/17 12:10 Urine Protein 30 mg/dL (<30 mg/dL) H 01/12/17 12:10 Urine Glucose (UA) >=1000 mg/dL (NEGATIVE) 01/12/17 12:10 Urine Ketones 15 mg/dL (NEGATIVE) H 01/12/17 12:10 Urine Blood Trace-lysed (NEGATIVE) H 01/12/17 12:10 Urine Nitrate Negative (NEGATIVE) 01/12/17 12:10 Urine Bilirubin Negative (NEGATIVE) 01/12/17 12:10 Urine Urobilinogen 0.2 E.U./dL (<1 E.U./dL) 01/12/17 12:10 Ur Leukocyte Esterase Negative Wil/uL (NEGATIVE) 01/12/17 12:10 Urine RBC 2 - 5 /hpf (0-2) 01/12/17 12:10 Urine WBC 0 - 2 /hpf (0-6) 01/12/17 12:10 Ur Epithelial Cells 3 - 4 /hpf (0-5) 01/12/17 12:10 Urine Bacteria Mod (NEG) 01/12/17 12:10 Urine Opiates Screen Negative (NEGATIVE) 01/12/17 21:50 Urine Methadone Screen Negative (NEGATIVE) 01/12/17 21:50 Ur Barbiturates Screen Negative (NEGATIVE) 01/12/17 21:50 Ur Phencyclidine Scrn Negative (NEGATIVE) 01/12/17 21:50 Ur Amphetamines Screen Negative (NEGATIVE) 01/12/17 21:50 U Benzodiazepines Scrn Negative (NEGATIVE) 01/12/17 21:50 U Oth Cocaine Metabols Negative (NEGATIVE) 01/12/17 21:50 U Cannabinoids Screen Negative (NEGATIVE) 01/12/17 21:50 Attending/Attestation - Attestation I have personally seen and examined this patient.: Yes I have fully participated in the care of the patient.: Yes I have reviewed all pertinent clinical information, including history, physical exam and plan: Yes Notes (Text): 01/14/17 07:56 Attending note; patient seen and examined with resident. Pt is a 36 year old Female with PMHx of IDDM presents with syncopal episode this morning. Pt denies any prior history of syncope. Pt states that this morning she began to fell dizzy and nauseous around 10 am. the patient had relative hypoglycemia and passed out. patient has poor po intake for the past week secondary to gingivitis and toothache. Currently fingerstick is normal. Symptomatic tachycardia; resolved. Treated with IV hydration. Cardiology evaluation with Dr. Arnav carbajal. Started on atenolol low dose. Follow-up with cardiology as outpatient. Echocardiogram showed normal ejection fraction. Mild to moderate TR. gingivitis/toothache; started on clindamycin. Diagnosis; Hypoglycemia Syncope/vasovagal Dehydration Tachycardia Gingivitis/dental caries 01/14/17 07:57
== END 2017-01-13 18:05 | disposition home or self-care (01) ==
LOC: ED 10:23 → ERH 15:21 → 2RNO 16:37
PROVIDERS: ADMIT Internal Medicine; ATTEND Internal Medicine
DX: E10.649 Type 1 diabetes mellitus with hypoglycemia without coma (principal); R55 Syncope and collapse; I95.1 Orthostatic hypotension; E86.0 Dehydration; K02.9 Dental caries, unspecified; K05.10 Chronic gingivitis, plaque induced; R00.0 Tachycardia, unspecified; Z96.41 Presence of insulin pump (external) (internal)
CPT/HCPCS: 36415; 70450; 71010; 71275; 80053; 80061; 80324; 80345; 80346; 80349; 80353; 80358; 80361; 81001; 82550; 82948; 83036; 83615; 83735; 83992; 84100; 84443; 84484; 85025; 85378; 85610; 85730; 93005; 93306; 93880; 96372; 96374; 99285; C9113; G0378; J2060; J2405; J7040; Q9967